=== PATIENT | female | born 1985 | race American Indian/Alaskan Native ===

== ENCOUNTER 2018-02-05 15:48 | Emergency (ER) | payer OTHER ==
--- NOTE | 2018-02-05 15:50 | ED PDOC ---
Arrival/HPI - General Time Seen by Provider: 02/05/18 15:49 Historian: Patient - History of Present Illness Narrative History of Present Illness (Text): 02/05/18 15:49 32 y/o female, no significant pmh, nkda, c/o suprapubic discomfort x 2 days with no fall or trauma. Pt. stated that her period is gonna be due in 2 days, been having suprapubic discomfort, no numbness or tingling, no vaginal bleeding or discharge, no abdominal pain, no nausea or vomiting, no night sweat, no numbness or tingling, no other medical or psychological complaints. Past Medical History - Provider Review Nursing Documentation Reviewed: Yes Family/Social History - Physician Review Nursing Documentation Reviewed: Yes Family/Social History: Unknown Family HX Allergies/Home Meds Allergies/Adverse Reactions: Allergies No Known Allergies Allergy (Verified 02/05/18 16:00) Review of Systems - Review of Systems Constitutional: absent: Fatigue, Fevers Eyes: absent: Vision Changes ENT: absent: Hearing Changes Respiratory: absent: SOB, Cough Cardiovascular: absent: Chest Pain Gastrointestinal: absent: Abdominal Pain, Nausea, Vomiting Genitourinary Female: absent: Dysuria, Frequency, Hematuria Skin: absent: Rash, Pruritis Neurological: absent: Headache Psychiatric: absent: Anxiety, Depression, Suicidal Ideation Physical Exam Vital Signs Reviewed: Yes Vital Signs Temp Pulse Resp BP Pulse Ox 02/05/18 17:34 66 18 116/75 97 02/05/18 16:00 98.8 F 67 18 113/75 96 Temperature: Afebrile Blood Pressure: Normal Pulse: Regular Respiratory Rate: Normal Appearance: Positive for: Well-Appearing, Non-Toxic, Comfortable Pain Distress: Mild Mental Status: Positive for: Alert and Oriented X 3 - Systems Exam Head: Present: Atraumatic, Normocephalic Pupils: Present: PERRL Extroacular Muscles: Present: EOMI Conjunctiva: Present: Normal Mouth: Present: Moist Mucous Membranes Neck: Present: Normal Range of Motion Respiratory/Chest: Present: Clear to Auscultation, Good Air Exchange. No: Respiratory Distress, Accessory Muscle Use Cardiovascular: Present: Regular Rate and Rhythm, Normal S1, S2. No: Murmurs Abdomen: Present: Tenderness (mild suprapubic tenderness). No: Distention, Peritoneal Signs, Rebound, Guarding Back: Present: Normal Inspection Upper Extremity: Present: Normal Inspection. No: Cyanosis, Edema Lower Extremity: Present: Normal Inspection. No: Edema Neurological: Present: GCS=15, CN II-XII Intact, Speech Normal Skin: Present: Warm, Dry, Normal Color. No: Rashes Psychiatric: Present: Alert, Oriented x 3, Normal Insight, Normal Concentration Medical Decision Making ED Course and Treatment: 02/05/18 16:13 -poc -UA -Observe and reassess 02/05/18 17:36 -Urine hcg is negative -UA show +UTI, rocephine 1gm ordered -Pt. feels well, eating and drinking well -Discharge home with keflex, motrin, stay hydrated, bed rest, follow up with your own pmd within 2 days, return to the R for any new or worsening signs or symptoms. 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 Disposition/Present on Arrival - Present on Arrival Any Indicators Present on Arrival: No History of DVT/PE: No History of Uncontrolled Diabetes: No Urinary Catheter: No History of Decub. Ulcer: No - Disposition Have Diagnosis and Disposition been Completed?: Yes Diagnosis: UTI (urinary tract infection), Cystitis Disposition: HOME/ ROUTINE Disposition Time: 16:14 Patient Plan: Discharge Condition: IMPROVED Additional Instructions: -Discharge home with keflex, motrin, stay hydrated, bed rest, follow up with your own pmd within 2 days, return to the R for any new or worsening signs or symptoms. Prescriptions: Cephalexin [Keflex] 500 mg PO TID #21 capsule Ibuprofen [Motrin Tab] 600 mg PO QID PRN #30 tab PRN Reason: Other Referrals: Claudia Becerra MD [Primary Care Provider] - Follow up with primary Zachariah Tyson MD [Staff Provider] - Follow up with primary Forms: WORK NOTE
[2018-02-05 16:00] VITALS: BMI 34.9
[2018-02-05 16:01] VITALS: RESP 18; TEMP 98.8
[2018-02-05 16:57] LABS: PH,URINE 8.5 (4.7-8.0); URINE BILIRUBIN NEGATIVE (NEGATIVE); URINE BLOOD MODERATE (NEGATIVE); URINE GLUCOSE (UA) NEGATIVE (NEGATIVE); URINE LEUKOCYTE ESTERASE SMALL Leu/uL (NEGATIVE); URINE PROTEIN 30 mg/dL (<30 mg/dL)
[2018-02-05 17:01] LABS: URINE APPEARANCE TURBID (CLEAR); URINE COLOR YELLOW (YELLOW)
[2018-02-05 17:04] LABS: URINE BACTERIA MANY (NEG); URINE WBC TNTC /hpf (0-6)
[2018-02-05] MEDS ORDERED: cefTRIAXone (Rocephin) 1 gm Inj IM STA (17:30)
[2018-02-05 17:34] VITALS: PULSE 66
[2018-02-05 18:01] VITALS: BP 118/74; O2SAT 100
== END 2018-02-05 18:00 | disposition home or self-care (01) ==
LOC: MERGE 15:48 → ED 15:48
DX: N30.90 Cystitis, unspecified without hematuria (principal); N39.0 Urinary tract infection, site not specified
CPT/HCPCS: 81001; 87086; 96372; 99284; J0696